=== PATIENT | female | born 1940 | race Caucasian/White ===

== ENCOUNTER 2020-10-23 15:14 | Emergency (ER) | payer MEDICARE, SELFPAY ==
[2020-10-23 15:16] VITALS: BP 132/64; PULSE 88; RESP 16; TEMP 37.7; O2SAT 97; BMI 21.7
--- NOTE | 2020-10-23 15:39 | ECG_ITS ---
APPROVED REPORT Exam: Resting ECG HR:83 bpm ECG Measurements Heart Rate 83 AXES CA 148 P 41 QRSd 56 QRS 35 QT 350 T 40 QTc 411 Conclusion Normal sinus rhythm Normal ECG Electronically signed by : Jorge Shah, 10/23/2020 16:59:54
--- NOTE | 2020-10-23 16:00 | [facility].EDNVD ---
ED Disposition Clinical Impression: Dehydration, Cystitis Disposition: Home, Self-Care Condition on Discharge: Good Instructions: DI for Nausea -- Adult, DI for Acute Cystitis Additional Instructions: Finish the entire course of antibiotics and return to the ED for any new or worsening symptoms. Prescriptions: Cefdinir [Omnicef 300mg Capsule] 300 mg PO BID #20 cap Transmission Status: Pending to [facility] Ondansetron [Zofran 4mg ODT] 4 mg PO TIDP PRN #9 tab PRN Reason: Nausea Transmission Status: Pending to [facility] Referrals: Carol Ann Piña PA [Primary Care Provider] - Time of Disposition: 18:57 - Critical Care Critical Care Time: No Attestation: On , the high probability of a clinically significant, sudden or life threatening deterioration of the following system(s) required my full and direct attention, intervention and personal management. The time I documented below is in addition to time spent performing reported procedures but includes the following listed in this critical care notation. Medical Decision Making - Medical Records Medical records reviewed: Yes: I reviewed the patient's medical records. - Lui Inquiry Pt receiving controlled substance: No Vital Signs: 10/23/20 15:16 10/23/20 17:34 10/23/20 18:00 Temperature 99.8 F H Temperature Source Oral Pulse Rate 75 74 Pulse Rate [Radial] 88 Respiratory Rate 16 16 16 Blood Pressure 123/55 L 102/44 L Blood Pressure [Right Arm] 132/64 Blood Pressure Mean 70 73 Blood Pressure Mean [Right Arm] 86 02 Sat by Pulse Oximetry 97 97 97 Oxygen Delivery Method Room Air 10/23/20 18:31 Temperature Temperature Source Pulse Rate 72 Pulse Rate [Radial] Respiratory Rate 16 Blood Pressure 119/47 L Blood Pressure [Right Arm] Blood Pressure Mean 70 Blood Pressure Mean [Right Arm] 02 Sat by Pulse Oximetry 98 Oxygen Delivery Method - Lab Data Lab Results 10/23/20 15:50: WBC 12.6 H, RBC 3.97 L, Hgb 11.0 L, Hct 32.4 L, MCV 81.7, MCH 27.7, MCHC 33.9, RDW 18.9 H, Plt Count 330, MPV 9.4, Neut % (Auto) 79.1, Lymph % (Auto) 12.2, Rich % (Auto) 7.8, Eos % (Auto) 0.6, Baso % (Auto) 0.3, Neut # (Auto) 10.0 H, Lymph # (Auto) 1.5, Rich # (Auto) 1.0, Eos # (Auto) 0.1, Baso # (Auto) 0.0 10/23/20 15:50: Sodium 135 L, Potassium 4.5, Chloride 98, Carbon Dioxide 26, Anion Gap 15.5 H, BUN 35 H, Creatinine 1.40 H, Estimated Creat Clear 26, Estimated GFR 36 L, Est GFR ( Amer) 44 L, Glucose 125 H, Calcium 9.2, Total Bilirubin 0.6, AST 35, ALT 12, Alkaline Phosphatase 80, Total Protein 8.0, Albumin 4.6, Globulin 3.4 H, Albumin/Globulin Ratio 1.4, Lipase 83 10/23/20 18:00: Urine Color Yellow, Urine Appearance Cloudy, Urine pH 5.0, Ur Specific [place] 1.015, Urine Protein Negative, Urine Glucose (UA) Negative, Urine Ketones Trace, Urine Blood Trace-i, Urine Nitrate Negative, Urine Bilirubin Negative, Urine Urobilinogen 0.2, Ur Leukocyte Esterase 3+ A, Urine RBC Occasional, Urine WBC 50-100, Ur Squamous Epith Cells 3-5, Urine Bacteria 4+ Result diagrams: 10/23/20 15:50 10/23/20 15:50 Orders (Tests/Meds): ED MEDICATIONS Discontinued Medications Generic Name Dose Route Start Last Admin Trade Name Freq PRN Reason Stop Dose Admin Sodium Chloride 1,000 mls @ 999 mls/hr 10/23/20 16:15 10/23/20 16:40 Sod Chlor 0.9% 1000ml Bag IV 10/23/20 17:15 999 mls/hr .Q1H1M KAROLYN Administration Ondansetron HCl 4 mg 10/23/20 16:04 10/23/20 16:23 Ondansetron 4mg/2ml Vial IV 10/23/20 16:05 4 mg ONCE ONE Administration ORDERS Category Date Time Status Urine Culture Stat Micro 10/23/20 18:00 Received - Radiology Data #1 Image(s): Chest Image Reviewed: Yes I have reviewed radiologist's interpretation Preliminary Findings: Abnormal (Concerning findings for a very mild consolidation to the right lower lobe concerning for pneumonia versus atelectasis.) - ECG Data Tracing #1 I revie
--- NOTE | 2020-10-23 16:04 | XR_ITS ---
PROCEDURE INFORMATION: Exam: XR Chest Exam date and time: 10/23/2020 4:04 PM Age: 80 years old Clinical indication: Right-sided; Patient HX: Right sided chest pain TECHNIQUE: Imaging protocol: XR of the chest. Views: 1 view. COMPARISON: No relevant prior studies available. FINDINGS: Lungs: Faint infiltrate at the right lung base. Pleural spaces: Unremarkable. No pleural effusion. No pneumothorax. Heart/Mediastinum: Unremarkable. No cardiomegaly. Bones/joints: Elevation of the right humeral head relative to the glenohumeral joint. IMPRESSION: 1. Right lung base infiltrate may represent pneumonia. 2. Possible old right rotator cuff injury.
[2020-10-23 16:14] LABS: Basophils % 0.3 % (0.1-2.0); Eosinophils # 0.1 K/mm3 (0.0-0.4); Eosinophils % 0.6 % (0.1-12.0); Hematocrit 32.4 % (37.0-47.0); Lymphocytes # 1.5 K/mm3 (0.7-4.5); Lymphocytes % 12.2 % (10-50); Mean Corpuscular HGB Conc 33.9 g/dL (31.8-35.4); Mean Corpuscular Hemoglobin 27.7 pg (27.0-31.2); Mean Corpuscular Volume 81.7 fl (81-99); Mean Platelet Volume 9.4 fl (7.4-10.4); Monocytes % 7.8 % (1.7-9.3); Neutrophils % 79.1 % (37.0-80.0); Platelet Count 330 K/mm3 (142-424); Red Blood Count 3.97 M/mm3 (4.20-5.40); Red Cell Distribution Width 18.9 % (11.5-17.5); White Blood Count 12.6 K/mm3 (4.8-10.8)
[2020-10-23 16:19] LABS: Alanine Aminotransferase 12 U/L (12-78); Albumin Level 4.6 g/dl (3.5-5.0); Albumin/Globulin Ratio 1.4 (1.1-1.8); Alkaline Phosphatase 80 U/L (38-126); Anion Gap 15.5 mEq/L (5-15); Aspartate Amino Transferase 35 U/L (14-36); Bilirubin,Total 0.6 mg/dl (0.2-1.3); Blood Urea Nitrogen 35 mg/dl (7-17); Calcium 9.2 mg/dl (8.4-10.2); Carbon Dioxide 26 mmol/L (22.0-30.0); Chloride 98 mmol/L (98-107); Creatinine Clearance Estimated 26 mL/min (50-200); Estimated Glomerular Filt Rate 36 ml/min (>60); GFR (African American) 44 ML/MIN (>60); Globulin 3.4 g/dL (1.3-3.2); Glucose 125 mg/dl (74-100); Lipase 83 U/L (23-300); Potassium 4.5 mmoL/L (3.5-5.1); Sodium 135 mmol/L (136-145)
[2020-10-23 17:34] VITALS: BP 123/55; PULSE 75; RESP 16; O2SAT 97
[2020-10-23 18:00] VITALS: BP 102/44; PULSE 74; RESP 16; O2SAT 97
[2020-10-23 18:16] LABS: Microscopic, Urine URINE MICROSCOPIC (MICROSCOPIC)
[2020-10-23 18:20] LABS: Appearance,Urine CLOUDY (Clear); Bilirubin,Urine Negative (Negative); Blood, Urine TRACE-I (Negative); Color,Urine YELLOW (Yellow); Glucose,Urine (UA) Negative (Negative); Ketones,Urine TRACE (Negative); Leukocyte Esterase,Urine 3+ (Negative); Nitrate,Urine Negative (Negative); Protein,Urine Negative (Negative); Specific Gravity, Urine 1.015 (1.005-1.030); Urobilinogen,Urine 0.2 EU/dl (0.2)
[2020-10-23 18:31] VITALS: BP 119/47; PULSE 72; RESP 16; O2SAT 98
[2020-10-23 18:34] LABS: Bacteria,Urine 4+ /lpf; RBC,Urine Occasional #/hpf (0-3); WBC,Urine 50-100 #/hpf (0-3)
[2020-10-23 19:13] VITALS: BP 119/47; PULSE 70; RESP 14; TEMP 36.9; O2SAT 99
== END 2020-10-23 19:29 | disposition home or self-care (01) ==
PROVIDERS: Emergency Provider Student in an Organized Health Care Education/Training Program; PCP Nurse Practitioner Family
DX: E86.0 Dehydration (principal); N30.00 Acute cystitis without hematuria
CPT/HCPCS: 71045; 80053; 81001; 83690; 85025; 87086; 87186; 93005; 96365; 99282; J2405